=== PATIENT | male | born 1960 | race African-American/Black ===

== ENCOUNTER 2019-10-27 18:14 | Inpatient (IN) | payer OTHER ==
[~2019-10-27] VITALS: Ht 175.3 cm; Wt 106.7 kg
[2019-10-27] MEDS ORDERED: SODIUM CHLORIDE 0.9% 1,000 ML IV ONE (18:27)
[2019-10-27 21:42] LABS: BASOPHILS % 0.7 % (0.0-2.0); EOSINOPHILS % 0.4 % (0.0-5.0); HEMATOCRIT. 52.4 % (42.0-52.0); HEMOGLOBIN. 16.8 g/dL (14.0-18.0); LYMPHOCYTES % 11.9 % (20.0-50.0); MEAN CORPUSCULAR HEMOGLOBIN 25.7 pg (28.0-32.0); MEAN CORPUSCULAR VOLUME 80.1 fL (80.0-94.0); MEAN PLATELET VOLUME 9.1 fl (7.4-10.4); MONOCYTES % 10.2 % (2.0-8.0); NEUTROPHILS % 76.8 % (40.0-76.0); PLATELET 242 x1000/uL (130-400); RED BLOOD CELL COUNT 6.54 mill/uL (4.7-6.1); RED CELL DISTRIBUTION WIDTH 15.1 % (11.6-14.6)
[2019-10-27] MEDS ORDERED: PIPERACILLIN/TAZ 3.375G PREMIX 50 ML IV ONE (22:15)
[2019-10-27] MEDS ORDERED: SODIUM CHLORIDE 0.9% 1000ML BAG (SEPSIS BOLUS) IV ONE (22:15)
[2019-10-28 00:13] LABS: CHLORIDE 107 mEq/L (98-107)
[2019-10-28] MEDS ORDERED: ACETAMINOPHEN 325MG TABLET PO PRN (08:30)
[2019-10-28] MEDS ORDERED: ONDANSETRON HCL 4MG/2ML INJ IV PRN (08:30)
[2019-10-28] MEDS: AMLODIPINE 5MG TABLET PO SCH (13:07)
[2019-10-28] MEDS ORDERED: PIPERACILLIN/TAZ 3.375G PREMIX 50 ML IV SCH (13:08)
[2019-10-28] MEDS ORDERED: IOHEXOL-350 100 ML BOTTLE ONE (13:24)
[2019-10-28 15:58] LABS: BASOPHILS % 0.9 % (0.0-2.0); EOSINOPHILS % 0.8 % (0.0-5.0); HEMOGLOBIN. 14.8 g/dL (14.0-18.0); LYMPHOCYTES % 14.9 % (20.0-50.0); MEAN CORPUSCULAR VOLUME 79.1 fL (80.0-94.0); MEAN PLATELET VOLUME 8.9 fl (7.4-10.4); MONOCYTES % 12.7 % (2.0-8.0); NEUTROPHILS % 70.7 % (40.0-76.0); PLATELET 211 x1000/uL (130-400); RED BLOOD CELL COUNT 5.69 mill/uL (4.7-6.1); RED CELL DISTRIBUTION WIDTH 14.7 % (11.6-14.6)
[2019-10-28 16:03] LABS: CHLORIDE 107 mEq/L (98-107)
[2019-10-28] MEDS ORDERED: AZITHROMYCIN 500 MG TABLET PO NR (17:30)
[2019-10-28] MEDS ORDERED: ALBU18HF2 IH (17:50)
[2019-10-28] MEDS ORDERED: LEVO500T2 MT (17:50)
[2019-10-28] MEDS ORDERED: FLUT1DIS3 INH (17:50)
[2019-10-28] MEDS ORDERED: CLONIDINE 0.1MG TABLET PO PRN (18:00)
[2019-10-28] MEDS ORDERED: CEFTRIAXONE 1 G PREMIX 50 ML IV NR (20:15)
[2019-10-28] MEDS ORDERED: PIPERACILLIN/TAZOBACTAM 3.375 G in DEXT 5% WATER 100 ML IV SCH (21:00)
[2019-10-29 03:10] VITALS: BP 131/97
[2019-10-29 04:00] VITALS: BP 137/82
[2019-10-29] MEDS ORDERED: OMEPRAZOLE 20MG CAPSULE EXTENDED RELEASE PO SCH (06:40)
[2019-10-29 07:34] LABS: EOSINOPHILS % 1.7 % (0.0-5.0); HEMATOCRIT. 43.2 % (42.0-52.0); LYMPHOCYTES % 20.1 % (20.0-50.0); MEAN CORPUSCULAR HEMOGLOBIN 25.6 pg (28.0-32.0); MEAN CORPUSCULAR VOLUME 79.2 fL (80.0-94.0); MEAN PLATELET VOLUME 9.4 fl (7.4-10.4); NEUTROPHILS % 65.2 % (40.0-76.0); PLATELET 200 x1000/uL (130-400); RED BLOOD CELL COUNT 5.46 mill/uL (4.7-6.1); RED CELL DISTRIBUTION WIDTH 14.8 % (11.6-14.6)
[2019-10-29 07:43] LABS: CHLORIDE 107 mEq/L (98-107)
[2019-10-29 08:00] VITALS: BP 123/83
[2019-10-29] MEDS ORDERED: ZINC SULFATE 220 MG ( 50 ) CAPSULE PO SCH (09:00)
[2019-10-29] MEDS ORDERED: THIAMINE HCL 100MG TABLET PO SCH (09:00)
[2019-10-29] MEDS ORDERED: ENOXAPARIN 40MG/0.4ML SYR SUBCUT SCH (09:00)
[2019-10-29] MEDS ORDERED: AZITHROMYCIN 250 MG TABLET PO SCH (09:00)
[2019-10-29] MEDS ORDERED: ASCORBIC ACID 500 MG TABLET PO SCH (09:00)
[2019-10-29] MEDS: AMLODIPINE 5MG TABLET PO SCH (09:08)
[2019-10-29 12:00] VITALS: BP 127/88
[2019-10-29 14:48] VITALS: BP 127/88
[2019-10-29] MEDS ORDERED: CEFTRIAXONE 1 G PREMIX 50 ML IV SCH ×2 (17:00→21:00)
[2019-10-29] MEDS ORDERED: ENOXAPARIN 30MG/0.3ML SYR SUBCUT SCH (21:00)
== END 2019-10-29 15:33 | disposition home or self-care (01) | DRG 871 ==
LOC: ER 18:14 → EDBEDREQTM 10-28 00:02 → EDBEDREQ 10-28 00:02 → 7EST 10-28 23:59 → ENRESERV 10-29 02:26
PROVIDERS: ADMIT Internal Medicine; ATTEND Internal Medicine
DX: A41.9 Sepsis, unspecified organism (principal); J96.00 Acute respiratory failure, unspecified whether with hypoxia or hypercapnia; I69.354 Hemiplegia and hemiparesis following cerebral infarction affecting left non-dominant side; I10 Essential (primary) hypertension; J44.9 Chronic obstructive pulmonary disease, unspecified; K52.9 Noninfective gastroenteritis and colitis, unspecified; J06.9 Acute upper respiratory infection, unspecified; Z20.828 Contact with and (suspected) exposure to other viral communicable diseases; Z79.899 Other long term (current) drug therapy
CPT/HCPCS: 36415; 71045; 71275; 74177; 80048; 80053; 83605; 83880; 84484; 85025; 85379; 87635; 93005; 96365; 96366; 99285; J0696; J2543; J7030; Q9967